=== PATIENT | female | born 1975 | race Two or more races ===

== ENCOUNTER 2023-03-27 10:20 | Outpatient (CLI) | payer MEDICARE, OTHER | END 2023-03-27 23:59 | disposition home or self-care (01) | LOC: WOU 10:20 | PROVIDERS: ATTEND Specialist | DX: L89.213 Pressure ulcer of right hip, stage 3 (principal); G82.21 Paraplegia, complete; S14.105S Unspecified injury at C5 level of cervical spinal cord, sequela; S12.400S Unspecified displaced fracture of fifth cervical vertebra, sequela; V49.9XXS Car occupant (driver) (passenger) injured in unspecified traffic accident, sequela; G40.909 Epilepsy, unspecified, not intractable, without status epilepticus; N31.9 Neuromuscular dysfunction of bladder, unspecified; M86.351 Chronic multifocal osteomyelitis, right femur; Z79.899 Other long term (current) drug therapy; E78.5 Hyperlipidemia, unspecified; I12.9 Hypertensive chronic kidney disease with stage 1 through stage 4 chronic kidney disease, or unspecified chronic kidney disease; N18.9 Chronic kidney disease, unspecified; R05.9 Cough, unspecified | CPT/HCPCS: 71046; G0463 ==

== ENCOUNTER 2023-04-08 12:00 | Outpatient (CLI) | payer MEDICARE, OTHER | END 2023-04-08 23:59 | disposition home health service (06) | LOC: WOU 12:00 | PROVIDERS: ATTEND Specialist | DX: L89.213 Pressure ulcer of right hip, stage 3 (principal); M86.351 Chronic multifocal osteomyelitis, right femur; G82.21 Paraplegia, complete; Z74.01 Bed confinement status | CPT/HCPCS: 87070; G0463 ==

== ENCOUNTER 2023-04-22 10:50 | Outpatient (CLI) | payer MEDICARE, OTHER ==
[2023-04-22 13:51] LABS: C-REACTIVE PROTEIN 0.6 mg/dL (0.0-0.9); PREALBUMIN 18.9 MG/DL (18.0-35.7)
== END 2023-04-22 23:59 | disposition home health service (06) ==
LOC: WOU 10:50
PROVIDERS: ATTEND Specialist
DX: L89.213 Pressure ulcer of right hip, stage 3 (principal); G82.21 Paraplegia, complete; M86.351 Chronic multifocal osteomyelitis, right femur; B96.20 Unspecified Escherichia coli [E. coli] as the cause of diseases classified elsewhere
CPT/HCPCS: 85652; 36415; 84134; 86140; G0463